=== PATIENT | male | born 1995 | race Caucasian/White ===

== ENCOUNTER 2019-08-02 20:31 | Inpatient (IN) | payer BC, SELFPAY ==
--- NOTE | ~2019-08-02 | CT_ITS ---
EXAMINATION: CT abdomen pelvis wo con DATE: 08/02/2019 22:38 INDICATION: Right upper quadrant pain. Pancreatitis. TECHNIQUE: Computed tomography (CT) of the abdomen and pelvis was performed without intravenous contr ast. The dose-length product was 488.91 mGy-cm. Automated exposure control and iterative reconstructi on technique were employed. COMPARISON: None. FINDINGS: Lung bases are unremarkable. Heart size normal. No pleural or pericardial effusion. No sign ificant vascular abnormality. The liver, spleen, pancreas, adrenal glands and kidneys are unremarkable. No hydronephrosis. Bladder is unremarkable. No evidence for diverticulitis or appendicitis. There are a few mildly prominent mes enteric and ileocolic lymph nodes. No free air or free fluid. No acute osseous abnormality. Gallbladd er is present. No evidence for hernia. IMPRESSION: 1. Mildly prominent mesenteric and ileocolic lymph nodes. Consider mesenteric adenitis in the appropr iate clinical setting. Reviewed, dictated and finalized at location A. IMPRESSION: 1. Mildly prominent mesenteric and ileocolic lymph nodes. Consider mesenteric a denitis in the appropriate clinical setting.
--- NOTE | ~2019-08-02 | US_ITS ---
US right upper quadrant INDICATION: Pancreatitis PROCEDURE: Realtime right upper abdominal ultrasound. COMPARISON: No prior studies for comparison. FINDINGS: The pancreas is normal without focal mass or pancreatic ductal dilation. Liver echotexture is normal without focal mass or intrahepatic biliary dilatation. There is normal directional flow i n the portal vein. The gallbladder is normal without stones, gallbladder wall thickening or pericholecystic fluid. Comm on bile duct measures 3 mm. No sonographic Strauss's sign. IMPRESSION: 1: Normal limited abdominal ultrasound. Reviewed, dictated and finalized at location A.
[2019-08-02 20:45] VITALS: BP 150/74; PULSE 69; RESP 17; TEMP 36.4; O2SAT 97
--- NOTE | 2019-08-02 21:12 | ED.ABDPAIN ---
HPI - Abdominal Pain General Chief Complaint: Abdominal Pain Stated Complaint: UPPER ABD PAIN Time Seen by Provider: 08/02/19 21:01 Source: patient Limitations: no limitations History of Present Illness HPI narrative: Pt c/o RUQ pain, 4/10, sharp, non radiating, started 3 days ago. Denies n/v/d or fever. Denies cp or sob. MD elicited complaint: abdominal pain Related Data Home Medications Medication Instructions Recorded Confirmed No Home Medications 08/02/19 08/02/19 Allergies Allergy/AdvReac Type Severity Reaction Status Date / Time No Known Allergies Allergy Mild Unverified 08/02/19 20:33 Review of Systems Review of Systems: All systems reviewed & are unremarkable except as noted in HPI and below Constitutional: Constitutional: Denies body ache(s), Denies chills, Denies excessive sweating, Denies fatigue, Denies fever(s), Denies headache(s), Denies lethargy, Denies malaise, Denies weakness and Denies weight loss Eyes: Eyes: Denies blurry vision, Denies change in vision and Denies loss of vision ENT: Denies dizziness, Denies ear discharge, Denies headache(s), Denies lip swelling, Denies epistaxis, Denies nasal congestion, Denies neck pain, Denies throat swelling and Denies tongue swelling Cardiovascular: Cardiovascular: Denies chest pain, Denies chest pain at rest, Denies chest pain with activity, Denies diaphoresis, Denies rapid heart rate, Denies edema, Denies irregular heart rhythm, Denies lightheadedness, Denies palpitations, Denies dyspnea and Denies dyspnea on exertion Respiratory: Respiratory: Denies chest congestion, Denies cough, Denies hemoptysis, Denies dyspnea and Denies dyspnea on exertion Gastrointestinal: Gastrointestinal: Denies melena, Denies hematochezia, Denies diarrhea, Denies nausea, Denies vomiting and Denies hematemesis Musculoskeletal: Musculoskeletal: Denies abnormal gait, Denies deformity, Denies joint swelling, Denies limited range of motion, Denies neck pain and Denies numbness Neurologic: Denies Abnormal speech present, Denies abnormal gait, Denies confusion, Denies dizziness, Denies headache(s), Denies focal weakness, Denies loss of vision, Denies numbness, Denies Other visual disturbances, Denies Sensory deficit (Neuro) and Denies weakness Psychiatric: Psychiatric: Denies confusion, Denies depression, Denies auditory hallucinations, Denies homicidal ideation and Denies suicidal ideation Endocrine: Endocrine: Denies cold intolerance, Denies excessive sweating, Denies fatigue, Denies heat intolerance and Denies palpitations Hematologic/Lymphatic: Hematologic/Lymphatic: Denies easy bleeding and Denies easy bruising Allergic/Immunologic: Allergic/Immunologic: Denies lip swelling, Denies throat swelling and Denies tongue swelling [facility] Social History Social History Gender identity (if verbalized by the patient): Male Exam Const: General: cooperative, healthy appearing, comfortable, no acute distress, well developed, alert and awake; No confusion Orientation/consciousness: oriented to person, oriented to place, oriented to time, patient oriented x3 and No confusion Limitations: no limitations HENMT: Head: normal to inspection, normocephalic and atraumatic Ears: hearing grossly normal bilaterally, TM normal on the right and TM normal on the left General nose exam: Normal external nose present, Normal nares present and No nasal discharge present Face and sinus: normal facial exam Mouth: Yes Normal oral and palatal mucosa present, Yes lip normal, Yes tongue normal and Yes oropharynx normal Throat: posterior oropharynx normal, tonsils normal and uvula midline Eyes: General: appearance normal, both eyes and all related structures Pupils: Equal, round and reactive pupils present EOM: EOMs intact bilaterally Neck: Neck: normal visual inspection, full ROM, no lymphadenopathy and no meningeal signs Chest: Chest palpation & inspection: normal inspection of the chest Resp: Effort & In
[2019-08-02 21:23] LABS: Basophils Percent Auto 0.3 % (0.2-1.2); Eosinophils Absolute Auto 0.2 K/mm3 (0-0.3); Eosinophils Percent Auto 1.4 % (0-4.4); Hematocrit 45.3 % (42.0-52.0); Hemoglobin 16.2 g/dL (14.0-18.0); Immature Granulocyte Absolute 0.03 K/mm3 (0.00-0.031); Immature Granulocyte Percent A 0.3 % (0-0.5); Lymphocytes Absolute Auto 1.86 K/mm3 (0.9-3.2); Lymphocytes Percent Auto 16.9 % (18.3-44.2); Mean Corpuscular HGB Conc 35.8 g/dl (32-36); Mean Corpuscular Volume 86.8 fl (80-100); Mean Platelet Volume 10.3 fl (7.4-10.4); Monocytes Percent Auto 8.8 % (2.6-8.5); Neutrophils Percent Auto 72.3 % (45.5-73.1); Platelet Count Result 269 k/mm3 (150-375); Red Blood Count 5.22 M/mm3 (4.6-6.20); Red Cell Distribution Width 12.2 % (11.5-14.5)
[2019-08-02] MEDS: FAMOTIDINE 20 MG TABLET 40 MG PO (21:25)
[2019-08-02] MEDS: KETOROLAC (*BKC) 60 MG/2 ML VIAL IM (21:25)
[2019-08-02 21:43] LABS: Alanine Aminotransferase 81 U/L (4-50); Albumin Level 4.9 g/dL (3.5-5.1); Alkaline Phosphatase 90 U/L (38-126); Aspartate Amino Transferase 45 U/L (17-59); Bilirubin,Total 0.9 mg/dL (0.2-1.3); Blood Urea Nitrogen 7 mg/dL (9-20); Calcium 9.4 mg/dL (8.4-10.2); Carbon Dioxide 28 mmol/L (22-30); Chloride 98 mmol/L (98-107); Estimated CRCL calculation 95 ml/min; Estimated Glomerular Filt Rate > 60; Glucose 92 mg/dL (75-110); Potassium 3.8 mmol/L (3.4-5.0); Sodium 137 mmol/L (137-145)
[2019-08-02 22:18] LABS: Lipase 9768 U/L (23-300)
[2019-08-02] MEDS: SODIUM CHLORIDE 0.9% IV 1,000 ML 999 ML IV CONT (22:45)
[2019-08-02 23:10] VITALS: BP 142/71; PULSE 71; RESP 15; O2SAT 98
[2019-08-02] MEDS: LACTATED RINGERS 1,000 ML 250 ML IV CONT (23:53)
[2019-08-02 23:54] VITALS: BP 133/60; PULSE 70; RESP 16; TEMP 36.6; O2SAT 97
--- NOTE | 2019-08-02 23:57 | ADMGEN ---
This patient, Laureano Oscar, was admitted to Medical Room 342-01. Patient/family oriented to hospital policies and general routines including ID bracelet, bed and alarms, visiting hours, pain management, procedures, bathroom and other care routines, personal items, smoking policy, room service/diet, and visiting hours. Valuables list has been completed. Information on how to activate the Rapid Response Team has been discussed. Patient/Family are encouraged to report perceived risks to care and to ask questions if they do not understand what they are told or what they should do.
[2019-08-03] MEDS: LACTATED RINGERS 1,000 ML 250 ML IV CONT (03:47)
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
[2019-08-03 05:12] LABS: Hematocrit 39.9 % (42.0-52.0); Mean Corpuscular HGB Conc 35.1 g/dl (32-36); Mean Corpuscular Volume 88.3 fl (80-100); Mean Platelet Volume 10.4 fl (7.4-10.4); Platelet Count Result 217 k/mm3 (150-375); Red Blood Count 4.52 M/mm3 (4.6-6.20); Red Cell Distribution Width 12.4 % (11.5-14.5); White Blood Count 6.9 K/mm3 (4.5-10.0)
[2019-08-03 05:38] LABS: Blood Urea Nitrogen 8 mg/dL (9-20); Carbon Dioxide 31 mmol/L (22-30); Chloride 103 mmol/L (98-107); Estimated CRCL calculation 95 ml/min; Estimated Glomerular Filt Rate > 60; Potassium 4.3 mmol/L (3.4-5.0); Sodium 137 mmol/L (137-145)
[2019-08-03 05:39] LABS: Alanine Aminotransferase 59 U/L (4-50); Albumin Level 3.9 g/dL (3.5-5.1); Alkaline Phosphatase 71 U/L (38-126); Aspartate Amino Transferase 33 U/L (17-59); Bilirubin,Total 0.9 mg/dL (0.2-1.3); Calcium 8.7 mg/dL (8.4-10.2); Glucose 95 mg/dL (75-110); Triglycerides 104 mg/dL (<150)
[2019-08-03 05:58] VITALS: BP 119/50; PULSE 66; RESP 16; TEMP 36.6; O2SAT 99; BMI 27.9
[2019-08-03 06:47] LABS: Lipase 8710 U/L (23-300)
[2019-08-03 08:37] VITALS: PULSE 68; RESP 16; O2SAT 99
[2019-08-03] MEDS: ENOXAPARIN 40 MG/0.4 ML SYRINGE SUB-Q (08:37)
[2019-08-03] MEDS: LACTATED RINGERS 1,000 ML 150 ML IV CONT ×2 (09:33→17:46)
--- NOTE | 2019-08-03 09:37 | PM.IMPN ---
Progress Note: A&P Assessment and Plan (1) Acute pancreatitis: Qualifiers: Acute pancreatitis complication: no infection or necrosis Pancreatitis type: alcohol induced Qualified Code(s): K85.20 - Alcohol induced acute pancreatitis without necrosis or infection Code(s): K85.90 - Acute pancreatitis without necrosis or infection, unspecified Status: Acute Assessment and Plan: Patient presented with acute epigastric pain ongoing 2-3 days and noted to drink 5 alcoholic drinks/day. CT does not demonstrate evidence of acute pancreatitis, however clinical picture is consistent with pancreatitis. Lipase elevated at 9768 at presentation. Improved today at 8710. Triglycerides 104. Blood sugar 95. WBC 6.9. AST 33. Epigastric pain resolved following toradol. No nausea/vomiting. Advance diet as tolerated. Continue clear liquids at lunch and advance to full at dinner. Continue to monitor lipase. Obtain RUQ US to assess for gallstone etiology as pancreas unremarkable on CT. Suspect pancreatitis related to alcohol use, however. Continue IV fluids (2) Alcohol use: Code(s): Z72.89 - Other problems related to lifestyle Status: Acute Assessment and Plan: Patient notes he drinks 5 beers/day approximately 5 days/week. Educate regarding risk of pancreatitis with alcohol use Encourage reduction of alcohol intake Subjective Date/time seen: 08/03/19 09:37 Interval history: Date of service: 08/03/2019 Mr. Oscar is seen today and reports he is feeling well. He reports that his pain has essentially resolved after Toradol administered in ED. He is tolerating clear liquids and denies any abdominal pain or discomfort. He denies fever, chills, nausea, vomiting, diarrhea. We discussed that he will will stay in the hospital tonight to monitor his lipase at it is still very elevated, and he is agreeable. He denies shortness of breath, chest pain, headache, or myalgias. He had a normal bowel movement yesterday. He is urinating without difficulty. He slept well last night. Review of Systems Review of Systems: Narrative: A 12 point review of systems reviewed with pertinent positives and negatives as per HPI. Exam Narrative: Exam Narrative: Mr. Oscar is examined alone today. He is a well-appearing, well-nourished 24-year-old male who is lying supine in bed. he appears comfortable and is in no acute distress. HR 66, BP 119/50, R 16, T 97.8?. Neuro: awake, alert and oriented x3, speech clear, no focal neuro deficits noted HEENMT: normocephalic, atraumatic, EOMI, sclerae anicteric, moist oral mucosa, normal oropharynx Neck: supple, no lymphadenopathy Respiratory: clear to auscultation bilaterally, normal respiratory effort, 99% on room air Cardio: regular rate, regular rhythm, normal S1 and S2 Abdomen: normal to inspection, nondistended, no bruising or ecchymosis, normoactive bowel sounds, tympanic to percussion, soft, nontender to palpation, Strauss sign negative, no masses or visible herniation Extremities: BLE without edema, erythema, or pain to palpation, healing ecchymosis on left lateral thigh, dorsal pedis pulses palpable bilaterally Skin: no rashes or lesions, warm and dry Psych: pleasant and cooperative, normal mood and affect Objective Data Vital Signs Vital Signs: Vital Signs - 24 hr 08/02/19 20:45 08/02/19 23:10 08/02/19 23:54 Temperature 97.5 F L 97.9 F Pulse Rate 69 71 70 Respiratory Rate 17 15 16 Blood Pressure 150/74 H 142/71 H 133/60 Pulse Oximetry 97 98 97 08/03/19 05:58 08/03/19 08:37 Temperature 97.8 F Pulse Rate 66 68 Respiratory Rate 16 16 Blood Pressure 119/50 L Pulse Oximetry 99 99 Intake/Output Intake/Output: Intake & Output 07/31/19 08/01/19 08/02/19 08/03/19 23:59 23:59 23:59 23:59 Intake Total 1000 2000 Output Total 500 Balance 1000 1500 Meds/Results Medications: Active Medications Generic Name Dose Route Start Last Admin
[2019-08-03 15:04] VITALS: BP 131/48; PULSE 61; RESP 14; TEMP 36.6; O2SAT 100
[2019-08-03 20:21] VITALS: BP 118/54; PULSE 59; RESP 14; TEMP 37; O2SAT 97
[2019-08-04] MEDS: LACTATED RINGERS 1,000 ML 150 ML IV CONT ×3 (01:04→14:36)
[2019-08-04 06:00] VITALS: BP 109/53; PULSE 68; RESP 14; TEMP 36.4; O2SAT 99
[2019-08-04 06:26] LABS: Hematocrit 43.2 % (42.0-52.0); Hemoglobin 15.1 g/dL (14.0-18.0); Mean Corpuscular Hemoglobin 30.9 pg (26-34); Mean Corpuscular Volume 88.5 fl (80-100); Mean Platelet Volume 10.4 fl (7.4-10.4); Platelet Count Result 252 k/mm3 (150-375); Red Blood Count 4.88 M/mm3 (4.6-6.20); Red Cell Distribution Width 12.3 % (11.5-14.5); White Blood Count 6.7 K/mm3 (4.5-10.0)
[2019-08-04 06:49] LABS: Alanine Aminotransferase 72 U/L (4-50); Albumin Level 4.3 g/dL (3.5-5.1); Alkaline Phosphatase 73 U/L (38-126); Aspartate Amino Transferase 40 U/L (17-59); Bilirubin,Total 1.2 mg/dL (0.2-1.3); Blood Urea Nitrogen 7 mg/dL (9-20); Calcium 9.3 mg/dL (8.4-10.2); Carbon Dioxide 30 mmol/L (22-30); Chloride 102 mmol/L (98-107); Estimated CRCL calculation 95 ml/min; Estimated Glomerular Filt Rate > 60; Glucose 95 mg/dL (75-110); Potassium 4.3 mmol/L (3.4-5.0); Sodium 139 mmol/L (137-145)
[2019-08-04] MEDS: ENOXAPARIN 40 MG/0.4 ML SYRINGE SUB-Q (08:00)
[2019-08-04 09:48] LABS: Lipase 15734 U/L (23-300)
[2019-08-04 11:17] LABS: Hepatitis B Surface Antigen Negative (Negative)
[2019-08-04 11:22] LABS: HAV RESULT Negative (Negative); Hepatitis B Core IgM Result Negative (Negative)
[2019-08-04 11:34] LABS: Hepatitis C Virus Antibody Negative (Negative)
[2019-08-04 14:00] VITALS: BP 123/57; PULSE 65; RESP 14; TEMP 36.7; O2SAT 99
--- NOTE | 2019-08-04 16:18 | PM.DS ---
DS: Diagnosis Admitting Diagnosis Admitting Diagnosis: Alcohol induced acute pancreatitis without necrosis or infection Discharge Diagnosis (1) Acute pancreatitis: Qualifiers: Acute pancreatitis complication: no infection or necrosis Pancreatitis type: alcohol induced Qualified Code(s): K85.20 - Alcohol induced acute pancreatitis without necrosis or infection Code(s): K85.90 - Acute pancreatitis without necrosis or infection, unspecified Status: Acute (2) Alcohol use: Code(s): Z72.89 - Other problems related to lifestyle Status: Acute DS: Summary Hospital Course Reason for hospitalization: Epigastric pain Hospital Course: Date of admission 08/02/2019 Date of discharge 08/04/2019 Laureano Oscar is a 24-year-old male with no significant past medical history who presented to the emergency department on 08/02/2019 with complaints of epigastric pain for 3-4 days. At presentation, T 97.5?, HR 69, BP 150/74, WBC 11.0, electrolytes stable, lipase 9768, AST 45, ALT 81, and CT revealing normal pancreas and gallbladder, with mildly prominent mesenteric lymph nodes. Lymphocytes wnl. He drinks approximately 5 beers per day, and noted that his alcohol intake has increased since the [id number] order has been in place. He was admitted to the hospitalist service on 08/02/2019 for presumed alcohol-induced pancreatitis, given his clinical symptoms. He was rehydrated with IV fluids. Triglycerides within normal limits and blood sugar within normal limits. His ALT was mildly elevated, therefore hepatitis panel was ordered which was negative. He will benefit from monitoring liver enzymes as an outpatient. His epigastric pain resolved after one time dose of Toradol and his diet progressed from clear liquids to low-fat diet. He remained afebrile and leukocytosis resolved. His lipase did increase upon diet advancement to solids, but he did not have any epigastric pain, nausea, vomiting, or diarrhea. RUQ ultrasound revealed normal gallbladder. Given complete resolution of his symptoms, he was anxious for discharge and felt to be stable to return home. He was educated on importance of abstaining from alcohol, as well as adhering to a low-fat diet and slowly advancing his diet as tolerated. He states that he has a primary care doctor in [place] who he is established with, but he has not seen. I encouraged him to schedule an appointment to follow-up in 1-2 weeks. we discussed worrisome signs and symptoms for which he should seek medical care. All of his questions were answered. He was discharged home in hemodynamically stable condition on the afternoon of 08/04/2019. Status at Discharge Functional status at discharge: independent ambulation Overall status at discharge: patient is back to baseline Time Spent with Patient Time attestation: Total time spent providing and/or coordinating discharge services:38 minutes Time spent: Greater than 30 minutes Exam Narrative: Exam Narrative: Mr. Oscar is examined alone today. He is a well-appearing, well-nourished 24-year-old male who is lying supine in bed. he appears comfortable and is in no acute distress. HR 68, BP 109/53, RR 14, T 97.5? Neuro: awake, alert and oriented x4, speech clear, no focal neuro deficits noted HEENMT: normocephalic, atraumatic, EOMI, sclerae anicteric, moist oral mucosa, normal oropharynx Neck: supple, no lymphadenopathy Respiratory: clear to auscultation bilaterally, normal respiratory effort, 99% on room air Cardio: regular rate, regular rhythm, normal S1 and S2 Abdomen: normal to inspection, nondistended, no bruising or ecchymosis, normoactive bowel sounds, tympanic to percussion, soft, nontender to palpation, Strauss sign negative, no masses or visible herniation Extremities: BLE without edema, erythema, or pain to palpation, healing ecchymosis on left lateral thigh, dorsal pedis pulses palpable bilaterally Skin: no rashes or lesions, warm and dry Psych:
== END 2019-08-04 17:22 | disposition home or self-care (01) | DRG 440 ==
LOC: ANHED 23:30 → ANH3MED 23:35
PROVIDERS: Physician Assistant; Admitting Provider Internal Medicine; Emergency Provider Emergency Medicine; Visit Provider Internal Medicine
DX: K85.20 Alcohol induced acute pancreatitis without necrosis or infection (principal); F17.290 Nicotine dependence, other tobacco product, uncomplicated; Z72.89 Other problems related to lifestyle
CPT/HCPCS: 36415; 74176; 76705; 80053; 80074; 83690; 84478; 85025; 85027; 96360; 96372; 99285; A9270; J1650; J1885; J7030; J7120

== ENCOUNTER 2019-10-28 05:39 | Emergency (ER) | payer BC, SELFPAY ==
[2019-10-28] VITALS (10 sets, daily range): BP systolic 109–140; BP diastolic 42–79; PULSE 69–94; RESP 10–18; TEMP 36.6–37.2; O2SAT 76–100
--- NOTE | ~2019-10-28 | XR_ITS ---
EXAMINATION: XR chest 1V portable DATE: 10/28/2019 07:00 INDICATION: Intoxication. Altered mental status. TECHNIQUE: A single frontal view of the chest was obtained. COMPARISON: CT abdomen and pelvis 08/02/2019 FINDINGS: The chest demonstrates clear lungs without pneumonia, pleural effusion, or pneumothorax. Th e heart size is normal. IMPRESSION: 1. No acute cardiopulmonary disease. Reviewed, dictated and finalized at location E.
--- NOTE | ~2019-10-28 | CT_ITS ---
EXAMINATION: CT brain wo con DATE: 10/28/2019 06:56 INDICATION: Altered mental state. Overdose. TECHNIQUE: Computed tomography (CT) of the head was performed without intravenous contrast. The mA wa s adjusted according to patient size. Iterative reconstruction technique was employed. Exam dose: 60 5.33 mGy-cm total exam DLP. COMPARISON: None FINDINGS: No intracranial mass lesion or hemorrhage or cerebrovascular accident is evident. No midlin e shift or mass effects. No subdural or epidural hematoma is detected. No skull fracture or bone destruction. Included paranasal sinuses and the mastoid air cells are unrem arkable with the exception of mild soft tissue thickening of the ethmoid air cells.. IMPRESSION: No significant intracranial abnormality Reviewed, dictated and finalized at [facility]. Reviewed, dictated and finalized at [facility].
--- NOTE | 2019-10-28 05:43 | ECG_ITS ---
Measurements Intervals [place] Rate: 92 P: 57 ND: 148 QRS: 64 QRSD: 98 T: 12 QT: 335 QTc: 414 Interpretive Statements SINUS RHYTHM BORDERLINE T WAVE ABNORMALITY- INFERIOR LEADS BORDERLINE ECG Electronically Signed On 10-28-2019 7:14:09 CDT by Juan Diego Fierro D.O.
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
[2019-10-28] MEDS: THIAMINE HCL 200 MG/2 ML VIAL 100 MG IV PUSH (06:07)
[2019-10-28] MEDS: SODIUM CHLORIDE 0.9% IV 1,000 ML 999 ML IV CONT ×2 (06:07→08:01)
[2019-10-28] MEDS: ONDANSETRON INJ 4 MG/2 ML VIAL IV PUSH (06:08)
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
[2019-10-28 06:15] LABS: Glucose Point of Care 76 (65-105)
[2019-10-28 06:26] LABS: Basophils Percent Auto 0.3 % (0.2-1.2); Eosinophils Percent Auto 0.4 % (0-4.4); Hematocrit 43.5 % (42.0-52.0); Immature Granulocyte Absolute 0.02 K/mm3 (0.00-0.031); Immature Granulocyte Percent A 0.3 % (0-0.5); Lymphocytes Absolute Auto 2.25 K/mm3 (0.9-3.2); Lymphocytes Percent Auto 33.5 % (18.3-44.2); Mean Corpuscular HGB Conc 34.5 g/dl (32-36); Mean Corpuscular Hemoglobin 30.7 pg (26-34); Mean Platelet Volume 10.6 fl (7.4-10.4); Monocytes Absolute Auto 0.3 K/mm3 (0.1-0.6); Monocytes Percent Auto 5.1 % (2.6-8.5); Neutrophils Absolute Auto 4.1 K/mm3 (1.3-6.7); Neutrophils Percent Auto 60.4 % (45.5-73.1); Platelet Count Result 269 k/mm3 (150-375); Red Blood Count 4.89 M/mm3 (4.6-6.20); Red Cell Distribution Width 12.5 % (11.5-14.5); White Blood Count 6.7 K/mm3 (4.5-10.0)
[2019-10-28 06:36] LABS: Prothrombin Time 13.1 Seconds (11.1-14.7)
[2019-10-28 06:37] LABS: Partial Thromboplastin Time 26.9 SECONDS (22.3-36.8)
--- NOTE | 2019-10-28 06:37 | PC.NURSE ---
pt cleaned up at this time.
--- NOTE | 2019-10-28 06:40 | PC.NURSE ---
npa placed in right nare at this time.
[2019-10-28 06:45] LABS: Salicylate < 1.0 mg/dL (2-20)
[2019-10-28 06:45] LABS: Acetaminophen < 10 ug/mL (10-30); Ethanol 199 mg/dL (<10)
[2019-10-28 07:04] LABS: Alanine Aminotransferase 38 U/L (4-50); Albumin Level 4.8 g/dL (3.5-5.1); Alkaline Phosphatase 74 U/L (38-126); Anion Gap 16.4 mmol/L (7-16); Aspartate Amino Transferase 35 U/L (17-59); Bilirubin,Total 0.4 mg/dL (0.2-1.3); Blood Urea Nitrogen 8 mg/dL (9-20); Carbon Dioxide 25 mmol/L (22-30); Chloride 106 mmol/L (98-107); Estimated Glomerular Filt Rate > 60; Glucose 87 mg/dL (75-110); Potassium 4.4 mmol/L (3.4-5.0); Sodium 143 mmol/L (137-145)
--- NOTE | 2019-10-28 07:22 | PC.NURSE ---
upon rounds pt was found to be standing at end of stretcher with all vital sign monitors pulled off and nasal trumpet removed. pt incont of urine. pt speaking nonsense and immediately fell back to sleep after linen change. aware
[2019-10-28 08:20] LABS: Add Urine Microscopic? NO; Appearance Urine Clear (Clear); Bilirubin Urine Negative (Negative); Blood Urine Negative (Negative); Color Urine Colorless (Yellow); Glucose Urine UA Negative (Negative); Ketones Urine Negative (Negative); Leukocyte Esterase Ur Negative LEU/UL (Negative); Nitrate Urine Negative (Negative); Protein Urine Negative (Negative); RBC Urine 0-2 /hpf (0-2); Specific Grav Ur 1.008 (1.001-1.035); Urobilinogen Urine Negative mg/dL (<2.0); WBC Urine 0-3 /hpf
[2019-10-28 08:31] LABS: Amphetamine Screen Urine Negative (Negative); Barbiturate Screen Urine Negative (Negative); Benzodiazepines Screen Urine Negative (Negative); Cannabinoid Screen Urine Positive (Negative); Cocaine Screen Urine Negative (Negative); Methadone Screen Urine Negative (Negative); Opiate Screen Urine Negative (Negative); Phencyclidine Screen Urine Negative (Negative)
[2019-10-28 08:54] LABS: Creatine Kinase 455 U/L (55-170)
--- NOTE | 2019-10-28 09:10 | PC.NURSE ---
pt intermittently more arousable. when awake pt pulls off all medical devices. extension service specialist in charge aware pt may need sitter soon due to more frequent periods of awakeness
[2019-10-28 10:09] LABS: Base Excess ABG -5.7 mEq/l (+/-2.0); Carboxyhemoglobin 0.4 % THb (0-2.0); Fractional Inspired Oxygen 21 %; HCO3 ABG 21.4 mEq/l (22.0-26.0); Methemoglobin ABG 0.4 %THb (0-1.5); Oxygen Content ABG 21.3 %vol (16.0-22.0); Oxygen Saturation ABG 97.1 % (95.0-100.0); Oxyhemoglobin 96.2 % THb (90.0-100.0); PCO2 ABG 47.5 mmHg (35.0-45.0); PO2 ABG 104.8 mmHg (80.0-100.0); PO2 FiO2 Ratio Arterial Blood 4.99 %; Total Hemoglobin 15.7 g/dL (12.0-18.0)
[2019-10-28 10:11] LABS: pH ABG 7.271 (7.350-7.450)
[2019-10-28 10:12] LABS: Device ROOM AIR; Site Drawn RIGHT BRACHIAL
--- NOTE | 2019-10-28 11:59 | PC.NURSE ---
attempted to ambulate pt in beck per md request. pt remains very drowsy and barely able to stand without major assist from nurse.
== END 2019-10-28 14:40 | disposition home or self-care (01) ==
LOC: ANHED 13:45 → ANH3MEDSUR 14:14 → ANHED 14:32
PROVIDERS: Emergency Medicine; Emergency Provider General Practice
DX: R41.82 Altered mental status, unspecified (principal); F10.10 Alcohol abuse, uncomplicated; Y90.6 Blood alcohol level of 120-199 mg/100 ml; F17.290 Nicotine dependence, other tobacco product, uncomplicated
CPT/HCPCS: 36415; 36600; 51701; 70450; 71045; 80053; 80307; 81003; 82375; 82550; 82805; 82948; 83050; 84443; 85025; 85610; 85730; 93005; 96361; 96374; 96375; 99284; J2405; J3411; J7030